=== PATIENT | female | born 1945 | race Caucasian/White ===

== ENCOUNTER → 2016-08-24 | Outpatient (CLI) | payer MEDICARE, OTHER ==
[~2016-08-24] MED LIST: NIT4 SL; OMEP20CA16 PO; SERT100T PO; [UNRECOGNIZED DRUG - CODE] PO
--- NOTE | 2016-08-24 09:18 | RADRPT ---
PROCEDURE: Right upper quadrant abdominal ultrasound. CLINICAL INDICATION: Mild pain, gallbladder polyp TECHNIQUE: Blair scale and color doppler ultrasound images of the right upper quadrant. COMPARISON: None FINDINGS: Pancreas: Visualized portions appear of normal echogenicity, no focal lesions. Liver: Morphology: Normal in size and contour. Echogenicity: Normal. Focal lesions: A few benign-appearing cysts are present measuring up to 4.7 cm. Main portal vein: Patent with hepatopetal flow. Biliary System: Normal appearing gallbladder wall. No gallstones seen. 4 x 10 mm nonshadowing echogenic mural structures noted within the gallbladder. No intrahepatic biliary dilatation. Common bile duct measures 2.7 mm in maximal dimension. Kidneys: Right 10.0 cm in length. Right renal cortical thickness is preserved. Normal echogenicity. No hydronephrosis. No renal calculi. No focal lesions. No free fluid identified. IMPRESSION: 4 x 10 mm nonshadowing echogenic mural structure within the gallbladder compatible with the history of gallbladder polyp. The patient's prior examinations are not available for comparison at time of interpretation. If this lesion is enlarged from the prior examinations MRI of the abdomen with and w ithout contrast is suggested for further evaluation. RPTAT: AADD .Braxton Lal MD, MD Date Time Electronically viewed and signed by .Braxton Lal MD, MD on 08/24/2016 09:18 .B/
== END | disposition home or self-care (01) ==
LOC: U/S 08:03
PROVIDERS: ATTEND Student in an Organized Health Care Education/Training Program
DX: K82.4 Cholesterolosis of gallbladder (principal)
CPT/HCPCS: 76705

== ENCOUNTER 2016-10-13 11:45 | Emergency (ER) | payer MEDICARE, OTHER ==
[~2016-10-13] VITALS: Ht 154.9 cm; Wt 40.5 kg
[2016-10-13 11:47] VITALS: Ht 154.9 cm; Wt 40.5 kg
[2016-10-13] MEDS ORDERED: ONDANSETRON 4 MG INJ IV STA (12:22)
[2016-10-13] MEDS ORDERED: FAMOTIDINE 20 MG INJ IV STA (12:22)
[2016-10-13] MEDS ORDERED: SOD CHLORIDE 0.9% 1,000 ML IV STA (12:22)
[2016-10-13 12:32] LABS: ADD SCAN DIFF NO
[2016-10-13 12:33] LABS: BASOPHILS % 0.5 % (0.0-2.0); EOSINOPHILS % 0.5 % (0.0-7.0); HEMATOCRIT 42.5 % (37.0-47.0); HEMOGLOBIN 14.3 g/dl (12.0-16.0); LYMPHOCYTES # 1.5 10^3/ul (0.8-2.9); LYMPHOCYTES % 34.8 % (15.0-51.0); MEAN CORPUSCULAR HEMOGLOBIN 31.8 pg (29.0-33.0); MEAN CORPUSCULAR HGB CONC 33.6 g/dl (32.0-37.0); MEAN CORPUSCULAR VOLUME 94.7 fl (82.0-101.0); MEAN PLATELET VOLUME 10.3 fl (7.4-10.4); MONOCYTE # 0.2 10^3/ul (0.3-0.9); MONOCYTES % 5.5 % (0.0-11.0); NEUTROPHIL # 2.6 10^3/ul (1.6-7.5); NEUTROPHILS % 58.5 % (39.0-77.0); PLATELET COUNT 211 10^3/UL (140-415); RED BLOOD COUNT 4.49 10^6/ul (4.20-5.40); RED CELL DISTRIBUTION WIDTH 11.7 % (11.5-14.5); WHITE BLOOD COUNT 4.4 10^3/ul (4.8-10.8)
[2016-10-13] MEDS ORDERED: AMIT25TA9 PO (13:01)
[2016-10-13 13:07] LABS: ALBUMIN 5.2 g/dl (3.3-4.9); CALCIUM 9.9 mg/dl (8.4-10.2); CREATININE 0.63 mg/dl (0.44-1.00); POTASSIUM 3.7 mmol/L (3.5-5.1); TOTAL PROTEIN 6.5 g/dl (6.1-8.1)
[2016-10-13 13:08] LABS: ADD UMIC YES; UR BILIRUBIN (Dip) NEGATIVE (NEGATIVE); UR BLOOD (Dip) 2+ (NEGATIVE); UR CLARITY CLEAR (CLEAR); UR COLOR LT. YELLOW (YELLOW); UR GLUCOSE (Dip) NEGATIVE (NEGATIVE); UR KETONES (Dip) NEGATIVE (NEGATIVE); UR LEUKOCYTE ESTERASE (Dip) NEGATIVE (NEGATIVE); UR NITRITE (Dip) NEGATIVE (NEGATIVE); UR TOTAL PROTEIN (Dip) NEGATIVE (NEGATIVE); UR UROBILINOGEN (Dip) 0.2 E.U./dL (0.1-1.0)
[2016-10-13 13:36] LABS: URINE RBCS NONE SEEN /HPF (0)
--- NOTE | 2016-10-13 14:33 | RADRPT ---
PROCEDURE: CT Abdomen and Pelvis without contrast. CLINICAL INDICATION: Abdominal and pelvic pain. TECHNIQUE: CT scan of the abdomen and pelvis without contrast was performed. Coronal and sagittal reformatted images were obtained from the axial source images. Images were reviewed on a high-resolu tion PACS workstation. Total exam DLP is 195.10 mGy-cm. CTDIvol is 3.92 mGy. One or more of the fo llowing dose reduction techniques were used: Automated exposure control, adjustment of the mA and/or kV according to patient size, use of iterative reconstruction technique. COMPARISON: None. FINDINGS: The lung bases are normal. There is no pleural effusion. The liver is normal in size and attenuation. There is a benign cyst posteriorly in the posterior seg ment of the right hepatic lobe inferiorly measuring 2.3 x 2.3 cm and a benign cyst is also present p osteriorly in the posterior segment of the right hepatic lobe medially measuring 4.2 x 4.4 cm. Ther e is no other focal hepatic lesion. There is faint calcification in the wall of the gallbladder. The gallbladder and bile ducts are oth erwise unremarkable. The spleen is normal in size. There is no focal splenic lesion. Both adrenals are normal with no enlargement or mass. The pancreas is unremarkable with no mass or evidence of pancreatitis. There is a benign cyst superiorly in the left kidney measuring 2.8 x 6.1 cm in AP and transverse dim ensions. A partially calcified mass is present superiorly in the right kidney measuring 1.0 x 1.0 c m. There is no renal calculus or hydronephrosis. The abdominal aorta is not dilated. There is calcification in the aorta consistent with atheroscler osis. There is no retroperitoneal lymphadenopathy or mass. There is no pelvic lymphadenopathy. Multiple calcified fibroids are present in the uterus with the largest measuring 4.7 cm. The bladder and distal ureters are normal. The periappendiceal region is unremarkable with no evidence of appendicitis. The bowel and mesentery are normal. There is no free fluid or free gas. There are degenerative changes of the spine. There is no acute fracture or lytic lesion. Bilateral pars defects are present at L5. There is grade 1 anterolisthesis at L5-S1. IMPRESSION: 1. Benign hepatic cysts. 2. Calcification in the wall of the gallbladder. 3. Benign cyst superiorly in the left kidney. 4. Partially calcified mass in the right kidney superiorly measuring 1.0 cm. Follow-up CT scan and 6 months advised. 5. Atherosclerosis. 6. Calcified fibroids in the uterus. 7. Degenerative changes of the spine. 8. Bilateral pars defects at L5 and grade 1 anterolisthesis at L5-S1. RPTAT: QQ .Vishnu Harris MD, MD Date Time Electronically viewed and signed by .Vishnu Harris MD, on 10/13/2016 14:33 .R/
--- NOTE | 2016-10-13 14:46 | ERD ---
ER Documentation Chief Complaint Date/Time DATE: 10/13/16 TIME: 14:44 Chief Complaint abdominal pain and headache since last night HPI This is a 71-year-old female who presents to the emergency room for abdominal cramping, generalized weakness and slight headache for the past 24 hours. The patient denies any fevers associated with this. She denies any diarrhea but does say she is nauseous and vomited once. She denies any blood in her vomit and denies any bilious color to her vomit. She does state that she has a history of reflux disease and this feels similar to reflux. She came to the ER today for evaluation. ROS All systems reviewed and are negative except as per history of present illness. Medications Home Meds Reported Medications Amitriptyline Hcl* (Amitriptyline Hcl*) 25 Mg Tablet, 25 MG PO QHS, #30 TAB 10/13/16 Nitroglycerin* (Nitrostat*) 0.4 Mg Tab.subl, 0.4 MG SL Q5MIN Y for CHEST PAIN, BOTTLE 04/06/14 Discontinued Reported Medications Omeprazole* (Omeprazole*) 20 Mg Capsule.dr, 20 MG PO DAILY, CAP 04/06/14 Amitriptyline Hcl* (Elavil*) 75 Mg Tab, 75 MG PO HS 04/18/11 Sertraline Hcl* (Zoloft*) 100 Mg Tablet, 100 MG PO HS 04/06/11 Allergies Allergies: Coded Allergies: iodine (Verified Allergy, Severe, 10/13/16) Uncoded Allergies: TRANQUILIZER (Allergy, Unknown, rash, palpitations, 08/07/13) PMhx/Soc History of Surgery: Yes (FACIAL SURGERY 1985 S/P ORBITAL FX ) Anesthesia Reaction: No Hx Neurological Disorder: No Hx Respiratory Disorders: No Hx Cardiac Disorders: No Hx Psychiatric Problems: Yes (DEPRESSION ) Hx Miscellaneous Medical Probl: No (HYPER THYROID, INTESTINAL POLYPS, KIDNEY, LIVER, GALLBLADDER) Hx Alcohol Use: No Hx Substance Use: No Hx Tobacco Use: No Smoking Status: Never smoker Physical Exam Vitals Vital Signs Date Time Temp Pulse Resp B/P Pulse Ox O2 Delivery O2 Flow Rate FiO2 10/13/16 11:47 98.2 71 20 179/82 98 Physical Exam INITIAL VITAL SIGNS: Reviewed by me GENERAL: The patient is well developed and appropriate for usual state of health in no apparent distress HEENT: Dry mucous murmurs, pupils equal, round, and reactive to light. EOMI. There is no scleral icterus. NECK: C-spine is soft and supple, there is no meningismus. There is no cervical lymphadenopathy. LUNGS: Clear to auscultation bilaterally. There are no rales, wheezes or rhonchi. HEART: Regular rate and rhythm, no murmurs, clicks, rubs or gallops. ABDOMEN: Soft, non-tender, non-distended. There are bowel sounds in all four quadrants. No rebound or guarding. EXTREMITIES: There is no peripheral cyanosis or edema. No focal swelling or erythema. NEUROLOGICAL: The patient moves all four extremities with 5/5 strength. Cranial nerves II - XII are intact. Normal gait. Alert and oriented SKIN: There is no apparent rash or petechiae. HEME/LYMPHATIC: There is no evidence of excessive bruising or lymphedema. PSYCHIATRIC: The patient does not appear anxious or depressed. Result Diagram: 10/13/16 1220 10/13/16 1220 Results 24 hrs Laboratory Tests Test 10/13/16 12:20 10/13/16 12:40 White Blood Count 4.410^3/ul Red Blood Count 4.4910^6/ul Hemoglobin 14.3g/dl Hematocrit 42.5% Mean Corpuscular Volume 94.7fl Mean Corpuscular Hemoglobin 31.8pg Mean Corpuscular Hemoglobin Concent 33.6g/dl Red Cell Distribution Width 11.7% Platelet Count 86219^3/UL Mean Platelet Volume 10.3fl Neutrophils % 58.5% Lymphocytes % 34.8% Monocytes % 5.5% Eosinophils % 0.5% Basophils % 0.5% Nucleated Red Blood Cells % 0.0/100WBC Neutrophils # 2.610^3/ul Lymphocytes # 1.510^3/ul Monocytes # 0.210^3/ul Eosinophils # 0.010^3/ul Basophils # 0.010^3/ul Nucleated Red Blood Cells # 0.010^3/ul Sodium Level 138mmol/L Potassium Level 3.7mmol/L Chloride Level 101mmol/L Carbon Dioxide Level 26mmol/L Anion Gap 15 Blood Urea Nitrogen 13mg/dl Creatinine 0.63mg/dl Glucose Level 106mg/dl Calcium Level 9.9mg/dl Total Bilirubin 1.0mg/dl Direct Bilirubin 0.00mg/dl Indirect Bilirubin 1.0mg/dl Aspartate Amino Transf (AST/SGOT) 31IU/L Alanine Aminotransferase (ALT/SGPT) 27IU/L Alkaline Phosphatase 122IU/L Total Protein 6.5g/dl Albumin 5.2g/dl Globulin 1.30g/dl Albumin/Globulin Ratio 4.00 Lipase 45U/L Urine Color LT. YELLOW Urine Clarity CLEAR Urine pH 5.5 Urine Specific [place] <=1.005 Urine Ketones NEGATIVE Urine Nitrite NEGATIVE Urine Bilirubin NEGATIVE Urine Urobilinogen 0.2 E.U./dL Urine Leukocyte Esterase NEGATIVE Urine Microscopic RBC NONE SEEN/HPF Urine Microscopic WBC NONE SEEN/HPF Urine Epithelial Cells RARE Urine Hemoglobin 2+ Urine Glucose NEGATIVE% Urine Total Protein NEGATIVE Current Medications Medications (Trade) Dose Ordered Sig/Roberto Route PRN Reason Start Time Stop Time Status Last Admin Dose Admin Sodium Chloride (NS) 1,000 ml @ 1,000 mls/hr Q1H STAT IV 10/13/16 12:22 10/13/16 13:21 DC 10/13/16 12:47 Ondansetron HCl (Zofran Inj) 4 mg ONCE STAT IV 10/13/16 12:22 10/13/16 12:23 DC 10/13/16 12:47 Famotidine (Pepcid Iv) 20 mg ONCE STAT IV 10/13/16 12:22 10/13/16 12:23 DC 10/13/16 12:47 Procedures/MDM CT abdomen pelvis without: 1. Benign hepatic cysts. 2. Calcification in the wall of the gallbladder. 3. Benign cyst superiorly in the left kidney. 4. Partially calcified mass in the right kidney superiorly measuring 1.0 cm. Follow-up CT scan and 6 months advised. 5. Atherosclerosis. 6. Calcified fibroids in the uterus. 7. Degenerative changes of the spine. 8. Bilateral pars defects at L5 and grade 1 anterolisthesis at L5-S1. This 71-year-old female presents to the emergency room for evaluation of generalized weakness abdominal cramping, nausea. She does have history of reflux and states that this does feel similar to previous reflux. When I evaluated this patient she was in no acute distress. She was afebrile and hemodynamically stable. She had no signs of abdominal pain on my examination, no signs of an acute abdomen or surgical abdomen. I did note mild dry mucous membranes. The patient was given Zofran Pepcid, [address] the abdomen pelvis was obtained and does not show any acute abnormality requiring immediate intervention. This patient is scheduled for a colonoscopy for colonic polyps and then next week and I advised her to maintain her appointment. This patient will be discharged at this time with a prescription for Zantac and instructions to return to the ER if she develops any worsening symptoms. Differential diagnoses entertained was broad with potential high acuity. Patient has been evaluated for appendicitis, cholecystitis, and other high risk medical and surgical causes of abdominal pain. Ultimately the patient's evaluation is nondiagnostic. Based on the patient's lack of risk factors, as well as the patient's clinical, laboratory, and imaging data, the patient appears to be low risk for these high risk causes of abdominal pain. Departure Diagnosis: Primary Impression: Abdominal pain Additional Impression: GERD (gastroesophageal reflux disease) CHERI BRUCE DO Oct 13, 2016 14:46
[2016-10-13] MEDS ORDERED: RANI150T9 PO (14:49)
[2016-10-13 15:18] VITALS: BP 135/91; PULSE 56; RESP 18
== END 2016-10-13 15:19 | disposition home or self-care (01) ==
LOC: E/R 11:45
DX: R10.84 Generalized abdominal pain (principal); K21.9 Gastro-esophageal reflux disease without esophagitis; R11.2 Nausea with vomiting, unspecified
CPT/HCPCS: 36415; 74176; 80053; 81001; 83690; 85025; 96374; 96375; 99285; J2405; J7030

== ENCOUNTER → 2016-11-20 | Outpatient (CLI) | payer MEDICARE, OTHER ==
[~2016-11-20] MED LIST changes: +AMIT25TA9 PO; -OMEP20CA16 PO; +RANI150T9 PO; -SERT100T PO; -[UNRECOGNIZED DRUG - CODE] PO
[2016-11-20 11:41] LABS: ALBUMIN 4.3 g/dl (3.3-4.9); ALBUMIN/GLOBULIN RATIO 1.26; BILIRUBIN,INDIRECT 0.8 mg/dl (0-1.1); BILIRUBIN,TOTAL 0.8 mg/dl (0.2-1.3); CALCIUM 9.1 mg/dl (8.4-10.2); CREATININE 0.71 mg/dl (0.44-1.00); TOTAL PROTEIN 7.7 g/dl (6.1-8.1)
--- NOTE | 2016-11-20 11:41 | RADRPT ---
PROCEDURE: XR Chest. CLINICAL INDICATION: PRE OP/ CHOLECYSTECTOMY TECHNIQUE: PA and Lateral views of the chest were obtained. COMPARISON: Chest x-ray 04/06/2014 FINDINGS: The cardiomediastinal silhouette is within normal limits. Biapical pleural parenchymal scarring is noted. No pneumothorax, pleural effusion, or parenchymal consolidation is identified. No evidence of pulmonary vascular congestion. The osseous structures, as visualized, are unremarkable. IMPRESSION: No evidence for active cardiopulmonary disease. RPTAT: PP Physician Teddy Date Time Electronically viewed and signed by Physician Teddy on 11/20/2016 11:41 RC/
[2016-11-20 13:15] LABS: BASOPHILS % 0.5 % (0.0-2.0); EOSINOPHILS % 0.5 % (0.0-7.0); HEMOGLOBIN 12.7 g/dl (12.0-16.0); LYMPHOCYTES # 1.5 10^3/ul (0.8-2.9); LYMPHOCYTES % 38.6 % (15.0-51.0); MEAN CORPUSCULAR HEMOGLOBIN 33.2 pg (29.0-33.0); MEAN CORPUSCULAR HGB CONC 33.4 g/dl (32.0-37.0); MEAN CORPUSCULAR VOLUME 99.2 fl (82.0-101.0); MEAN PLATELET VOLUME 10.7 fl (7.4-10.4); MONOCYTE # 0.3 10^3/ul (0.3-0.9); NEUTROPHIL # 2.1 10^3/ul (1.6-7.5); NEUTROPHILS % 53.1 % (39.0-77.0); PLATELET COUNT 197 10^3/UL (140-415); RED BLOOD COUNT 3.83 10^6/ul (4.20-5.40); RED CELL DISTRIBUTION WIDTH 12.3 % (11.5-14.5)
--- NOTE | 2016-11-22 08:58 | RADRPT ---
Vent Rate: 62 bpm RR Interval: 0 msec MD Interval: 158 msec QRS Duration: 86 msec QT Interval: 448 msec QTC Interval: 454 msec P-R-T Adrian: 61 - 67 - 63 degrees Normal sinus rhythm Minimal voltage criteria for LVH, may be normal variant Borderline ECG Electronically Signed By: Jose Murphy [id number]
== END | disposition home or self-care (01) ==
LOC: EKG 10:15
PROVIDERS: ATTEND Surgery Surgical Oncology
DX: K76.89 Other specified diseases of liver (principal)
CPT/HCPCS: 71020; 80053; 85025; 93005

== ENCOUNTER 2018-03-06 13:48 | Inpatient (IN) | END 2018-03-10 17:40 | disposition home or self-care (01) | DRG 392 ==